=== PATIENT | female | born 1995 | race Hispanic/Latino ===

== ENCOUNTER 2018-11-22 18:55 | Observation (INO) | payer SELFPAY ==
[2018-11-22 05:38] VITALS: BMI 27.9
[2018-11-22 06:31] LABS: ROM Internal Control Test YES-OK TO RESULT pt. (Internal QC); ROM Patient Test Negative (Negative)
[2018-11-22 06:43] LABS: Fetal Fibronectin Negative
[2018-11-22 06:44] LABS: Red Blood Cells-Urine 0 SEEN /hpf (0-5)
[2018-11-22 06:49] LABS: Color, Urine Yellow (Yellow); Glucose, Dipstick Normal (Normal); Ketone-Dipstick Negative (Negative); Leukocyte Esterase-Dipstick 100 /ul (Negative); Nitrite-Dipstick Negative (Negative); Occult Blood-Urine Negative /ul (Negative); Protein-Dipstick Negative (Negative); Specific Gravity, Urine 1.015 (1.002-1.030); Urine Bilirubin Dipstick Negative (Negative); Urine Clarity Sl. Cloudy (Clear); Urine Urobilinogen Normal (Normal)
[2018-11-22 06:56] LABS: Amorphous Sediment 1+; Bacteria RARE /hpf (None Seen); Mucous, Urine 1+ /hpf (<or=2+); Squamous Epithelial Cells - UA 5-10 SEEN /hpf (5-10); White Blood Cells 5-10 SEEN /hpf (0-5)
[2018-11-22] MEDS: Betamethasone/Betamethasone 30 MG/5 ML Vial 12 MG IM (08:00)
[2018-11-22 08:07] LABS: Absolute Lymphocyte Count 1.11 X10^3/uL (0.83-4.51); Absolute Neutrophil Count 5.4 X10^3/uL (2.0-7.7); Basophil# 0.03 X10^3/uL; Basophil% 0.4 % (0-1); Eosinophil# 0.04 X10^3/uL; Eosinophils% 0.6 % (0-5); Hematocrit 35.1 % (37-47); Hemoglobin 11.7 g/dL (12.0-15.0); Lymphocyte # 1.11 X10^3/ul (4.0); Lymphocyte % 15.9 % (19-41); Mean Corp Hgb Conc 33.3 g/dL (32-36); Mean Corpuscular Hgb 29.8 pg (27.0-32.0); Mean Corpuscular Volume 89.3 fL (81-99); Monocyte# 0.32 X10^3/uL; Monocyte% 4.6 % (0-10); NRBC Flagged by Analyzer 0 % (0-5); Neutrophil # 5.36 X10^3/uL (2.7-7.7); Neutrophil % 76.6 % (47-70); Platelet Count 133 K/mm3 (150-450); RBC Distribution Width CV 13.9 % (11.6-14.6); RBC Distribution Width SD 45.3 fl (35.1-43.9); Red Blood Count 3.93 M/mm3 (4.2-5.4)
[2018-11-22 08:26] LABS: Group B Strep DNA By PCR Negative (Negative); Internal Control PASS; Probe Check PASS; Specimen Processing Control PASS
[2018-11-22] MEDS: Lactated Ringers 1,000 ML 999 ML IV (10:00)
--- NOTE | 2018-11-22 10:03 | OB.TRI.PN ---
Progress Notes Date of Service: 11/22/18 Progress Note: 23 year old female presented to L&D with complaint of abdominal pain. Patient lives in [place] and dropped off by in ER. Patient does not speak Hungarian, Yoruba speaking. here and fluent in Yoruba. Patient states she is from [place] and was visiting [place], on the way back from [place] to [place] she started having the abdominal pain and came to [facility]. Her dropped her off and urgently needed to get his sister back to [place] due to his sister being in an unsafe environment. Patient has lived in the [facility] for 7 years. She stated she felt safe and no concerns. Denied leakage of fluid or vaginal bleeding. Good movement. She received PN care in [place]. Approximately 29-30 weeks, patient unsure. States she has been nauseous, not eating a lot. Denies any emesis. 0: Gen: A&Ox3 Heart:RRR Lungs: bilaterally CTA Abd: Soft, non tender, gravid Cervix 1cm per nursing, unchanged on follow up exam NST reactive FFN negative A: Abdominal Pain P: 1) No signs of labor, no contractions or cervical change. FFN negative. 2) 1 dose of Celestone today and repeat in 24hr. 3) Patient will stay overnight and get Celestone in am. Was dropped off by and patient has no money or place to go throughout the night. 4) NST q4h and vitals q shift. 5) CMP, CBC, type and screen, and urine tox screen. 1 Liter LR bolus. 5) notified of patient status and plan. Laboratory Studies: Laboratory Tests 11/22/18 11/22/18 11/22/18 Range/Units 07:55 07:55 06:30 WBC 7.0 (4.4-11.0) K/mm3 RBC 3.93 L (4.2-5.4) M/mm3 Hgb 11.7 L (12.0-15.0) g/dL Hct 35.1 L (37-47) % MCV 89.3 (81-99) fL MCH 29.8 (27.0-32.0) pg MCHC 33.3 (32-36) g/dL RDW Std Deviation 45.3 H (35.1-43.9) fl RDW Coeff of Faviola 13.9 (11.6-14.6) % Plt Count 133 L (150-450) K/mm3 MPV 11.0 (6.2-12.0) fl Immature Gran % (Auto) 1.900 H (0.0-0.9) % Neut % (Auto) 76.6 H (47-70) % Lymph % (Auto) 15.9 L (19-41) % Jenkins % (Auto) 4.6 (0-10) % Eos % (Auto) 0.6 (0-5) % Baso % (Auto) 0.4 (0-1) % Absolute Neuts (auto) 5.4 (2.0-7.7) X10^3/uL Absolute Lymphs (auto) 1.11 (0.83-4.51) X10^3/uL Nucleated RBC % 0 (0-5) % Urine Color Yellow (Yellow) Urine Clarity Sl. Cloudy (Clear) Urine pH 8.0 (5.0 - 8.0) Ur Specific [place] 1.015 (1.002-1.030) Urine Protein Negative (Negative) mg/dl Urine Glucose (UA) Normal (Normal) mg/dl Urine Ketones Negative (Negative) mg/dl Urine Occult Blood Negative (Negative) /ul Urine Nitrite Negative (Negative) Urine Bilirubin Negative (Negative) mg/dL Urine Urobilinogen Normal (Normal) mg/dl Ur Leukocyte Esterase 100 H (Negative) /ul Urine RBC 0 SEEN (0-5) /hpf Urine WBC 5-10 SEEN (0-5) /hpf Ur Squamous Epith Cells 5-10 SEEN (5-10) /hpf Amorphous Sediment 1+ Urine Bacteria RARE (None Seen) /hpf Urine Mucus 1+ (<or=2+) /hpf Vag Amniotic Fld Detect (Negative) Group B Strep DNA (Negative) Fibronectin Specimen Comment Blood Type O POSITIVE Antibody Screen NEGATIVE 11/22/18 11/22/18 Range/Units 05:55 05:55 WBC (4.4-11.0) K/mm3 RBC (4.2-5.4) M/mm3 Hgb (12.0-15.0) g/dL Hct (37-47) % MCV (81-99) fL MCH (27.0-32.0) pg MCHC (32-36) g/dL RDW Std Deviation (35.1-43.9) fl RDW Coeff of Faviola (11.6-14.6) % Plt Count (150-450) K/mm3 MPV (6.2-12.0) fl Immature Gran % (Auto) (0.0-0.9) % Neut % (Auto) (47-70) % Lymph % (Auto) (19-41) % Jenkins % (Auto) (0-10) % Eos % (Auto) (0-5) % Baso % (Auto) (0-1) % Absolute Neuts (auto) (2.0-7.7) X10^3/uL Absolute Lymphs (auto) (0.83-4.51) X10^3/uL Nucleated RBC % (0-5) % Urine Color (Yellow) Urine Clarity (Clear) Urine pH (5.0 - 8.0) Ur Specific [place] (1.002-1.030) Urine Protein (Negative) mg/dl Urine Glucose (UA) (Normal) mg/dl Urine Ketones (Negative) mg/dl Urine Occult Blood (Negative) /ul Urine Nitrite (Negative) Urine Bilirubin (Negative) mg/dL Urine Urobilinogen (Normal) mg/dl Ur Leukocyte Esterase (Negative) /ul Urine RBC (0-5) /hpf Urine WBC (0-5) /hpf Ur Squamous Epith Cells (5-10) /hpf Amorphous Sediment Urine Bacteria (None Seen) /hpf Urine Mucus (<or=2+) /hpf Vag Amniotic Fld Detect Negative (Negative) Group B Strep DNA Negative (Negative) Fibronectin Negative Specimen Comment Not Reportable Blood Type Antibody Screen
[2018-11-22] MEDS: Ondansetron ODT 4 MG Tablet PO (10:10)
[2018-11-22 10:30] LABS: ALB/GLOB Ratio 0.7 RATIO (0.9-2.4); AST(SGOT) 13 U/L (15-37); Alanine Aminotransfer ALT/SGPT 15 U/L (13-56); Albumin, Serum 2.7 g/dL (3.2-5.0); Alkaline Phosphatase 76 U/L (45-117); Anion Gap 8 (5-15); BUN 5 mg/dL (7-18); BUN/Creat Ratio 8.9 RATIO (10-20); Calcium,Total 8.2 mg/dL (8.5-10.1); Chloride 107 mmol/L (98-107); Creatinine, Serum 0.56 mg/dL (0.55-1.02); EST Glomerular Filtration Rate 142 mL/min (>60); Est Glom Filt Rate - Afr Amer 171 mL/min (>60); Estimated Creatinine Clearance 111.27 ml/min; Globulin 3.9 g/dL (2.2-4.2); Glucose 96 mg/dL (74-106); Protein, Total 6.6 g/dL (6.4-8.2); Sodium Level 140 mmol/L (136-145)
[2018-11-22 14:22] LABS: Amphetamine Urine VISTA NEGATIVE (<1000 ng/mL); Barbiturate Urine VISTA NEGATIVE (< 200 ng/mL); Benzodiazepine Urine VISTA NEGATIVE (< 200 ng/mL); Cocaine Urine VISTA NEGATIVE (< 300 ng/mL); Ecstacy Urine VISTA NEGATIVE (< 500 ng/mL); Methadone Urine VISTA NEGATIVE (< 300 ng/mL); PCP Urine VISTA NEGATIVE (< 25 ng/mL); THC Urine VISTA NEGATIVE (< 50 ng/mL); Vista UDS pH Range 7
[2018-11-23] MEDS: Betamethasone/Betamethasone 30 MG/5 ML Vial 12 MG IM (08:27)
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
== END 2018-11-23 12:05 | disposition home or self-care (01) ==
LOC: WPOUT 11-23 13:22
PROVIDERS: Advanced Practice Midwife; Admitting Provider Obstetrics & Gynecology; Visit Provider Obstetrics & Gynecology
DX: O47.03 False labor before 37 completed weeks of gestation, third trimester (principal); Z3A.29 29 weeks gestation of pregnancy
CPT/HCPCS: 96360; 96372; 36415; 59025; 59050; 80053; 80307; 81001; 82731; 84112; 85025; 86850; 86900; 86901; 87081; 87653; 99218; J7120; G0378; J0702